=== PATIENT | male | born 1990 | race African-American/Black ===

== ENCOUNTER 2017-04-03 15:39 | Emergency (ER) | payer OTHER ==
[~2017-04-03] VITALS: Ht 182.9 cm; Wt 77.1 kg
[~2017-04-03 15:39] MED LIST: RANITIDINE HCL150 MG ORAL
[2017-04-03] MEDS ORDERED: IBUPROFEN600 MG ORAL (17:52)
--- NOTE | 2017-04-03 17:52 | Emergency Room Report ---
History of Present Illness General Chief Complaint: Lower Extremity Injury Source: Patient Present Illness HPI 26 YO Male presents to the emergency department complaining of 8/10 in severity localized pain to the lateral right ankle with swelling and tenderness status post mechanical fall off his skateboard yesterday. Patient denies hitting his head or loss of consciousness. Patient states he is able to bear mild weight. Patient denies previous injury. Denies bruising. denies bleeding or open wounds. Denies numbness tingling or loss of sensation or gross motor movements of the extremities, incontinence of bowel or bladder. Denies CP, Palpitations, LOC, AMS, dizziness, Changes in Vision, Sensation, paresthesias, or a sudden severe headache. Allergies: Coded Allergies: No Known Allergies (Unverified , 05/08/14) Patient History Past Medical History: see triage record Past Surgical History: none Pertinent Family History: none Immunizations: UTD Reviewed Nursing Documentation: PMH: Agreed, PSxH: Agreed Nursing Documentation-PMH Past Medical History: No Stated History Hx Asthma: Yes Review of Systems All Other Systems: negative except mentioned in HPI Physical Exam Vital Signs Date Time Temp Pulse Resp B/P Pulse Ox O2 Delivery O2 Flow Rate FiO2 04/03/17 16:02 97.9 80 20 122/74 100 Room Air Sp02 EP Interpretation: reviewed, normal General Appearance: no apparent distress, alert, GCS 15, non-toxic Head: normocephalic, atraumatic Eyes: bilateral eye PERRL, bilateral eye normal inspection ENT: hearing grossly normal, normal pharynx, no angioedema, normal voice Neck: full range of motion, supple/symm/no masses Respiratory: lungs clear, normal breath sounds, speaking full sentences Cardiovascular #1: regular rate, rhythm, no edema, normal capillary refill Musculoskeletal: back normal, gait/station normal, normal range of motion, swelling - right lateral ankle swelling, tender - ttp to lateral right foot and ankle, no bruising or erythema noted. Neurologic: alert, oriented x3, responsive, motor strength/tone normal, sensory intact, speech normal Psychiatric: judgement/insight normal, memory normal, mood/affect normal Skin: normal color, no rash, warm/dry, well hydrated Medical Decision Making PA Attestation Dr. Duncan is my supervising Physician whom patient management has been discussed with. Diagnostic Impression: Primary Impression: Right ankle sprain Qualified Codes: S93.401A - Sprain of unspecified ligament of right ankle, initial encounter ER Course 26 YO Male presents to the emergency department complaining of 8/10 in severity localized pain to the lateral right ankle with swelling and tenderness status post mechanical fall off his skateboard yesterday. Patient denies hitting his head or loss of consciousness. Patient states he is able to bear mild weight. Patient denies previous injury. Denies bruising. denies bleeding or open wounds. Denies numbness tingling or loss of sensation or gross motor movements of the extremities, incontinence of bowel or bladder. Denies CP, Palpitations, LOC, AMS, dizziness, Changes in Vision, Sensation, paresthesias, or a sudden severe headache. Ddx considered but are not limited to Fracture, dislocation, contusion, Sprain/ Strain/Spasm, Epidural abscess, Neoplastic mets. Vital signs: are WNL, pt. is afebrile H&PE are most consistent with musculoskeletal injury will perform imaging to r/ o fractures/dislocations. ORDERS: - X-ray Right ankle 3 views - negative for fx, Dislocation, or significant soft tissue injury- swelling noted to right lateral ankle soft tissues, per preliminary read in ED by Dr. Duncan - interpretation is scribed by PA. - X-ray Right Foot 3 views - negative for fx, Dislocation, or significant soft tissue injury, per preliminary read in ED by Dr. Duncan - interpretation is scribed by PA. ED INTERVENTIONS: - Eliot wrap applied by accounts payable technician. Pt. remains neurovascularly intact. -Pt. provided with crutches. DISCHARGE: At this time pt. is stable for d/c to home. Will provide printed patient care instructions, and any necessary prescriptions. Care plan and follow up instructions have been discussed with the patient prior to discharge. Last Vital Signs Date Time Temp Pulse Resp B/P Pulse Ox O2 Delivery O2 Flow Rate FiO2 04/03/17 16:02 97.9 80 20 122/74 100 Room Air Disposition: HOME, SELF-CARE Condition: Stable Scripts Ibuprofen* (MOTRIN*) 600 Mg Tablet 600 MG ORAL THREE TIMES A DAY, #30 TAB 0 Refills Prov: Caroline Larson P.Donnie 04/03/17 Referrals: Ramona UGALDE,REFERRING (PCP) Patient Instructions: Ankle Sprain Additional Instructions: Take medications as directed. Follow up with a Primary Care Provider in 3-5 days, even if your symptoms have resolved. --Please review list of primary care clinics, if you do not already have a primary care provider Return sooner to ED if new symptoms occur, or current symptoms become worse. - Please note that this Emergency Department Report was dictated using [employer] consultant technology software, occasionally this can lead to erroneous entry secondary to interpretation by the dictation equipment. Caroline Larson Apr 03, 2017 17:52
[2017-04-03 18:22] VITALS: BP 122/74
--- NOTE | 2017-04-04 10:11 | Diagnostic Imaging Report ---
Indication: PAIN Technique: 3 views right foot Comparison: none Findings: There is mild pes planus. No acute fractures. No dislocations. The joint spaces are preserved. Impression: Negative
--- NOTE | 2017-04-04 10:12 | Diagnostic Imaging Report ---
Indication: PAIN Technique: 3 views of the right ankle Comparison: none Findings: No acute fractures. No dislocations. Joint spaces are preserved. Normal mineralization. No radiopaque foreign body. Impression: Negative
== END 2017-04-03 18:23 | disposition home or self-care (01) ==
LOC: EMR 17:20
DX: S93.401A Sprain of unspecified ligament of right ankle, initial encounter (principal); J45.909 Unspecified asthma, uncomplicated; V00.131A Fall from skateboard, initial encounter; Y92.9 Unspecified place or not applicable
CPT/HCPCS: 29540; 99283

== ENCOUNTER 2018-07-01 23:20 | Emergency (ER) | payer OTHER ==
[~2018-07-01] VITALS: Ht 182.9 cm; Wt 79.4 kg
[~2018-07-01 23:20] MED LIST changes: +ALBUTEROL SULF8.5 GM INH; +IBUPROFEN600 MG ORAL; +QUETIAPINE FUMA25 MG ORAL
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
[2018-07-02] MEDS ORDERED: IBUPROFEN600 MG ORAL (00:11)
[2018-07-02 00:30] VITALS: BP 97/37
--- NOTE | 2018-07-02 10:26 | Diagnostic Imaging Report ---
Indication: Knee Pain 3 views of the left knee were obtained. Findings: No acute fracture, malalignment, or joint effusion are identified. Joint space is relatively well-maintained. The lateral view is suboptimal. Impression: Negative for acute injury
== END 2018-07-02 00:30 | disposition home or self-care (01) ==
LOC: EDBD 23:20 → EMR 23:33
DX: S80.02XA Contusion of left knee, initial encounter (principal); V03.10XA Pedestrian on foot injured in collision with car, pick-up truck or van in traffic accident, initial encounter; Y93.01 Activity, walking, marching and hiking; Y92.410 Unspecified street and highway as the place of occurrence of the external cause
CPT/HCPCS: 29515; 99283

== ENCOUNTER 2018-09-29 09:53 | Emergency (ER) | payer OTHER ==
[~2018-09-29] VITALS: Ht 182.9 cm; Wt 70.3 kg
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
[2018-09-29 10:15] VITALS: BP 114/67
--- NOTE | 2018-09-29 10:15 | NUR ---
ED Nurse Note: blood and flu swab sent down to lab
[2018-09-29 10:46] LABS: HEMATOCRIT 40.8 % (42.0-52.0); HEMOGLOBIN 13.7 G/DL (14.2-18.0); MEAN CORPUSCULAR VOLUME 85 FL (80-99); PLATELET COUNT 292 K/UL (150-450); RED BLOOD COUNT 4.79 M/UL (4.70-6.10); WHITE BLOOD COUNT 10.3 K/UL (4.8-10.8)
[2018-09-29 11:11] LABS: ANION GAP 9 mmol/L (5-15); BLOOD UREA NITROGEN 9 mg/dL (7-18); CARBON DIOXIDE 23 MMOL/L (21-32); CHLORIDE 101 MMOL/L (98-107); CREATININE 1.1 MG/DL (0.55-1.30); POTASSIUM 3.5 MMOL/L (3.5-5.1); SODIUM 133 MMOL/L (136-145)
[2018-09-29 11:24] LABS: ALANINE AMINOTRANSFERASE 50 U/L (12-78); ALBUMIN 3.5 G/DL (3.4-5.0); ALBUMIN/GLOBULIN RATIO 0.9 (1.0-2.7); ALKALINE PHOSPHATASE 97 U/L (46-116); ASPARTATE AMINO TRANSFERASE 35 U/L (15-37); BILIRUBIN,TOTAL 0.3 MG/DL (0.2-1.0); CKMB 1.3 NG/ML (0.0-3.6); CREATINE KINASE 422 U/L (26-308)
--- NOTE | 2018-09-29 11:25 | Diagnostic Imaging Report ---
EXAM: XR Chest, 1 View CLINICAL HISTORY: SOB TECHNIQUE: Frontal view of the chest. COMPARISON: No relevant prior studies available. FINDINGS: Lungs: Hypoventilatory lungs. Bibasilar lung atelectasis. Pleural space: Unremarkable. No pneumothorax. Heart: Unremarkable. No cardiomegaly. Mediastinum: Unremarkable. Bones/joints: Unremarkable. IMPRESSION: Hypoventilatory lungs. Bibasilar lung atelectasis.
[2018-09-29 13:20] LABS: APPEARANCE,URINE CLEAR; BILIRUBIN, URINE NEGATIVE (NEGATIVE); COLOR,URINE PALE YELLOW; GLUCOSE, URINE (UA) NEGATIVE (NEGATIVE); KETONES,URINE NEGATIVE (NEGATIVE); LEUKOCYTE ESTERASE ,URINE NEGATIVE (NEGATIVE); NITRITE,URINE NEGATIVE (NEGATIVE); PH,URINE 6 (4.5-8.0); PROTEIN,URINE NEGATIVE (NEGATIVE); UROBILINOGEN,URINE NORMAL MG/DL (0.0-1.0)
[2018-09-29 13:36] VITALS: BP 105/73
[2018-09-29] MEDS ORDERED: Acetaminophen 500mg (ES) tab ORAL ONE (13:45)
--- NOTE | 2018-09-29 13:50 | NUR ---
Note laice in EDM - 09/29/18 at 1722 by KPAKENYATTA ED Nurse Note: pt discharge instruction provided w/ prescription, pt advised to follow up with pcp, pt education done via discussion and handout, pt wristband removed and iv d/c, dressing applied, taxi voucher issued, pt states he has place to go after discharge, verbalized understanding and agrees with plan. pt ambulatory w/ steady gait, vss, afebrile, temp 99.7.
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
[2018-09-29] MEDS ORDERED: ALBUTEROL SULF8.5 GM INH (13:53)
--- NOTE | 2018-09-29 13:58 | NUR ---
ED Nurse Note: tylenol given for fever 100.5 lunch tray provided for the patient.
--- NOTE | 2018-09-29 14:54 | NUR ---
ED Nurse Note: unable to obtain correct oral temperature, because patient is eating his lunch tray right now. axillary temp 98.7
--- NOTE | 2018-09-29 14:55 | NUR ---
HAND-OFF: Report given to Marcie LANZA.
[2018-09-29 16:30] VITALS: BP 120/81
--- NOTE | 2018-09-29 16:45 | NUR ---
ED Nurse Note: pt discharge instruction provided w/ prescription, pt advised to follow up with pcp, pt education done via discussion and handout, pt wristband removed and iv d/c, dressing applied, taxi voucher issued, pt states he has place to go after discharge, verbalized understanding and agrees with plan. pt ambulatory w/ steady gait, vss, afebrile, temp 99.7.
== END 2018-09-29 16:35 | disposition home or self-care (01) ==
LOC: EDBD 09:53 → EMR 10:52
DX: J06.9 Acute upper respiratory infection, unspecified (principal); F15.10 Other stimulant abuse, uncomplicated; J45.909 Unspecified asthma, uncomplicated
CPT/HCPCS: 36415; 71045; 80053; 80307; 80329; 81003; 82550; 82553; 83605; 83690; 85007; 85025; 86710; 93005; 96360; 99284

== ENCOUNTER 2018-10-10 19:12 | Emergency (ER) | payer OTHER ==
[~2018-10-10] VITALS: Ht 182.9 cm; Wt 74.8 kg
[2018-10-10 19:12] VITALS: BP 132/86
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
--- NOTE | 2018-10-10 19:15 | NUR ---
ED Nurse Note: pt ent to ct with tech.
--- NOTE | 2018-10-10 19:25 | NUR ---
ED Nurse Note: pt came back from ct
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
[2018-10-10] MEDS ORDERED: CLARITIN-D 121 EAC1 ORAL (21:02)
[2018-10-10] MEDS ORDERED: TRAMADOL HCL50 MG ORAL (21:02)
[2018-10-10 21:10] VITALS: BP 125/76
--- NOTE | 2018-10-10 21:10 | NUR ---
ED Nurse Note: Patient is being discharged cleared by ER PA. discharge paper/instruction given to the patient, patient verbalized understanding. patient a/o x4, ambulated out of Ed with steady gait, with all belongings. ID band removed.
--- NOTE | 2018-10-11 09:35 | Diagnostic Imaging Report ---
Indications: Pain and trauma Technique: Spiral acquisitions obtained through the brain. Angled axial and coronal 5 x 5 mm slices were reconstructed. Total dose length product 4036.31 mGycm. CTDI vol(s) 70.38,70.38,70.38 mGy. Dose reduction achieved using automated exposure control Comparison: None. Findings: No acute intracranial hemorrhage or edema, mass effect, nor midline shift. Normal yoo-white differentiation. Normal-sized ventricles and extra axial CSF spaces. There is complete opacification of the left maxillary sinus, with polyposis extending into the nasal fossa and evidence of destruction of the medial maxillary sinus wall. Although this also extends into the floor of the ethmoid sinuses. There is bilateral ethmoid and left frontal sinus mucosal thickening. The visualized orbits are unremarkable. Impression: Negative for acute intracranial bleed or mass effect Extensive sinus disease, as described This agrees with the preliminary interpretation provided overnight by Dr. Delgado The CT scanner at [facility] is accredited by the [employer] and the scans are performed using protocols designed to limit radiation exposure to as low as reasonably achievable to attain images of sufficient resolution adequate for diagnostic evaluation.
--- NOTE | 2018-10-11 09:37 | Diagnostic Imaging Report ---
Indication: Chest pain and trauma Technique: One view of the chest Comparison: 09/29/2018 Findings: There is mild thoracic scoliotic deformity. Lungs and pleural spaces are clear. The heart size is normal. There is no significant interim change Impression: Negative
--- NOTE | 2018-10-11 09:42 | Diagnostic Imaging Report ---
Indication: Left lower rib cage pain, status post fall Technique: 2 views of the left ribs Comparison: none Findings: No acute fractures. No gross pneumothorax Impression: Negative
== END 2018-10-10 21:10 | disposition home or self-care (01) ==
LOC: EDBD 19:12 → EMR 19:46
DX: S22.42XA Multiple fractures of ribs, left side, initial encounter for closed fracture (principal); S09.90XA Unspecified injury of head, initial encounter; W18.39XA Other fall on same level, initial encounter; Y04.0XXA Assault by unarmed brawl or fight, initial encounter; Y92.89 Other specified places as the place of occurrence of the external cause; F17.200 Nicotine dependence, unspecified, uncomplicated; J32.9 Chronic sinusitis, unspecified; J33.9 Nasal polyp, unspecified
CPT/HCPCS: 70450; 71045; 99284

== ENCOUNTER 2018-10-15 17:09 | Emergency (ER) | payer OTHER ==
[~2018-10-15] VITALS: Ht 182.9 cm; Wt 74.4 kg
[~2018-10-15 17:09] MED LIST changes: +CLARITIN-D 121 EAC1 ORAL; +TRAMADOL HCL50 MG ORAL
[2018-10-15 17:30] VITALS: BP 130/75
--- NOTE | 2018-10-15 17:30 | NUR ---
ED Nurse Note: Pt came in due to right elbow lump .Denies any injury. No pain at this time. Pt is AAO x4, ambulatory and ble to move his right arm completely.
[2018-10-15] MEDS ORDERED: IBUPROFEN600 MG ORAL (17:40)
--- NOTE | 2018-10-15 17:41 | Emergency Room Report ---
History of Present Illness General Chief Complaint: Skin Rash/Abscess Source: Patient Present Illness HPI 28-year-old male patient presents the ER complaining of right elbow swelling and pain times 1 day. Reports he was "resting on" his elbow yesterday when he knows that began to swell. Denies redness or erythema. Denies fever, chest pain, shortness of breath. Denies acute injury or trauma. States has not taken medication for relief of pain symptoms. Patient is also requesting refill of cough medication. Allergies: Coded Allergies: No Known Allergies (Unverified , 10/15/18) Patient History Past Medical History: see triage record Reviewed Nursing Documentation: PMH: Agreed; PSxH: Agreed Nursing Documentation-PMH Past Medical History: No History, Except For Hx Asthma: Yes Review of Systems All Other Systems: negative except mentioned in HPI Physical Exam Vital Signs Date Time Temp Pulse Resp B/P (MAP) Pulse Ox O2 Delivery O2 Flow Rate FiO2 10/15/18 17:13 98.2 94 16 127/80 96 Room Air Sp02 EP Interpretation: reviewed, normal General Appearance: well appearing, no apparent distress, alert, GCS 15, non- toxic Head: normocephalic, atraumatic Eyes: bilateral eye normal inspection, bilateral eye PERRL ENT: hearing grossly normal, normal pharynx, no angioedema, normal voice, uvula midline, moist mucus membranes Neck: full range of motion Respiratory: lungs clear, normal breath sounds, no rhonchi, no respiratory distress, no accessory muscle use, no wheezing, speaking full sentences Cardiovascular #1: regular rate, rhythm, no edema Cardiovascular #2: 2+ radial (R), 2+ radial (L) Musculoskeletal: back normal, digits/nails normal, gait/station normal, normal range of motion, non-tender, swelling - Right elbow, movable, no erythema, no warmth to touch Neurologic: alert, oriented x3, responsive, motor strength/tone normal, sensory intact Psychiatric: mood/affect normal Skin: no rash Medical Decision Making PA Attestation Dr. Maldonado is my supervising Physician whom patient management has been discussed with. Diagnostic Impression: Primary Impression: Bursitis ER Course Pt. presents to the ED c/o right elbow swelling. Ddx considered but are not limited to fracture, sprain, strain, contusion, dislocation. No erythema, no warmth to touch, no fever, nontoxic appearing, low suspicion for septic joint. Soft compartments, no pulselessness, no pallor, no paresthesias, low suspicion for compartment syndrome at this time. Vital signs: are WNL, pt. is afebrile Ordered X-ray and pain medication. ER COURSE Provided with pain medication. Patient denies acute injury or trauma, does not require x-ray at this time. Physical exam consistent with bursitis, no erythema or warmth to touch, low suspicion for septic arthritis or bursitis. Does not require labs at this time. Patient afebrile. Follow-up with accounting software specialist to discuss drainage. Elbow EVELYN wrapped, checked afterwards by me showing good alignment and NVI. Patient instructed on RICE method: rest, ice, compression, elevation. Patient instructed on rest, ice and heat. Patient instructed to be WBAT Contact information for orthopedic urgent care provided, follow-up with urgent care if unable to followup with primary care provider and get referral to accounting software specialist. Followup with primary care provider. Discuss referral to ortho/pain management/ PT as needed. Discuss further imaging with MRI/CT as needed. DISCHARGE: -Rx provided for Ibuprofen for pain symptoms. At this time pt. is stable for d/c to home. Patient is resting comfortably, in no acute distress, nontoxic appearing, talking without difficulty. Will provide printed patient care instructions, and any necessary prescriptions. Patient instructed to follow with primary care provider in 3 - 5 days and to request further follow-up as needed. Care plan and follow up instructions have been discussed with the patient prior to discharge. Take medications as directed. Patient questions asked and answered. Patient reports understanding and agreement to treatment plan. ER precautions given, patient instructed to return to ER immediately for any new or worsening of symptoms. - Please note that this Emergency Department Report was dictated using [employer] specialist technology software, occasionally this can lead to erroneous entry secondary to interpretation by the dictation equipment. Last Vital Signs Date Time Temp Pulse Resp B/P (MAP) Pulse Ox O2 Delivery O2 Flow Rate FiO2 10/15/18 17:13 98.2 94 16 127/80 96 Room Air Disposition: HOME, SELF-CARE Condition: Stable Scripts Ibuprofen* (MOTRIN*) 600 Mg Tablet 600 MG ORAL Q8H PRN for For Pain, #30 TAB 0 Refills Prov: Graeme Abreu 10/15/18 Patient Instructions: Elbow Bursitis, [id number] Additional Instructions: Patient instructed to follow up with primary care provider and discuss further referral to orthopedics/physical therapy/pain management as needed. If unable to followup with PCP, followup with orthopedic urgent care in 5-7 days , call to schedule appointment. Patient instructed on RICE method: rest, ice, compression, elevation. Patient instructed to WBAT. Take medications as directed. Patient questions asked and answered. ER precautions given, patient instructed to return to ER immediately for any new or worsening of symptoms including but not limited to redness, increased pain, fever, intractable vomiting. [facility] [address] [facility] [address] [facility], [address] [email or web address] Graeme Abreu Oct 15, 2018 17:41
--- NOTE | 2018-10-15 18:10 | NUR ---
ED Nurse Note: talya wrap applied by nuclear medicine technologist.
--- NOTE | 2018-10-15 18:10 | NUR ---
ED Nurse Note: pt cleared to d/c per ER provider, pt d/c instruction and prescription provided per ER Provider, pt education done via discussion and hand out, pt advised to follow up with pcp to continue care, pt verbalized understanding and agrees with plan, wristband removed. pt vss, ambulatory w/ steady gait. all belongings left w/ pt.
[2018-10-15 18:12] VITALS: BP 118/68
== END 2018-10-15 18:12 | disposition home or self-care (01) ==
LOC: EMR 17:46
DX: M70.31 Other bursitis of elbow, right elbow (principal); J45.909 Unspecified asthma, uncomplicated
CPT/HCPCS: 99282